=== PATIENT | male | born 1975 | race Caucasian/White ===

== ENCOUNTER 2018-07-15 08:54 | Inpatient (IN) ==
--- NOTE | 2018-06-28 16:05 | PAT Medication Instructions ---
Medication Instructions Date of Service June 28, 2018 Home Medications lisinopril 20 mg PO QAM omeprazole 20 mg PO DAILY PRN oxybutynin chloride 10 mg PO QPM DO NOT take the morning of surgery lisinopril 20 mg PO QAM Take morning of surgery With a small sip of water, OTHERWISE NOTHING TO EAT OR DRINK AFTER MIDNIGHT: omeprazole 20 mg PO DAILY PRN (if needed) Take evening before surgery omeprazole 20 mg PO DAILY PRN (if needed) oxybutynin chloride 10 mg PO QPM Other Notes If you have any questions please call us at [phone] or [phone] or [phone] or [phone]
--- NOTE | 2018-07-01 11:40 | Anesthesiology Consultation ---
Date of Service July 01, 2018 Assessment & Plan Chart Review Chart Review: Acceptable Risk for Surgery and Patient seen in Pre Admission Testing Teaching & Discussion Pre-Anesthesia Teaching/Discussion Notes: Instructed NPO after midnight before surgery,except medications with 15 cc of water. Medication instructions provided according to the PAT guidelines. History Surgery Operation Date: 07/15/18 12:25 Proposed Procedures p L4-S1 Decompression and Fusion - Dejan Segovia DO Height/Weight Height: 6 ft Weight: 88.7 kg Allergies Allergy/AdvReac Type Severity Reaction Status Date / Time Penicillins Allergy Unknown A CHILD Verified 06/25/18 14:58 Medications Home Medications Medication Instructions Recorded Confirmed Last Taken lisinopril 20 mg PO QAM 06/25/18 06/25/18 Unknown omeprazole 20 mg PO DAILY PRN 06/25/18 06/25/18 Unknown oxybutynin chloride 10 mg PO QPM 06/25/18 06/25/18 Unknown Past Medical History Medical History Chronic back pain LLE RADICULOPATHY/NEUROPATHY GERD (gastroesophageal reflux disease) CONTROLLED Hyperlipidemia "BORDERLINE" Hypertension Overactive bladder Past Surgical History Surgical History History of herniorrhaphy RIGHT INGUINAL Ulnar nerve compression LEFT DECOMPRESSION Past Anesthesia History No Hx of Anesthesia Complications and No Family Hx of Anesthesia Complications History of PONV No Motion Sickness Screening History of Motion Sickness: No Social History Smoking Status: Current every day smoker tobacco type: cigarettes Do You Dip or Chew Tobacco: Yes (OCCASIONAL- ADVISED NOT TO CHEW AM DOS) Smoking End Date: 1 PPD X 30 YEARS AGO Hx Alcohol Use: Yes Alcohol type: beer alcohol intake frequency: a few times a month Hx Substance Use: No substance use type: does not use Exercise / Class Metabolic Activity II 4-5 Yardwork/Stairs/Walk up hill Review of Systems URI symptoms improving. Patient denies chest pain, shortness of breath, dyspnea on exertion, wheezing, palpitations. Physical Exam Vital Signs VITALS BP 119/82 P 71 TEMP 97.7 SP02 96%RA RESP 20 PHYSICAL Full neck and c-spine range of motion. Full TMJ range of motion. TMD 3 finger breaths Mallampati Score 3 Dentition: intact Lungs: clear throughout to auscultation Cardiac: regular rate and rhythm, no murmurs noted Spine: normal Carotid arteries: negative bruit Extremities: no edema Trimmed pichardo. Testing Electrocardiogram Date: 01/03/18 Findings: + NSR @ (69) Chest X-Ray Date: 01/03/18 Findings: + NAD Echocardiogram Date: 01/20/16 EF 66%. No RWMA. No significant valvular disease. Stress Test Date: 01/20/16 Type: exercise (+ NUCLEAR) No exercise induced reversible myocardial ischemia noted. LVEF 60%. 10.3 METS. 100%MPHR. Laboratory Results 07/01/18 11:48 07/01/18 11:48 Blood Type O Positive 07/01/18 11:48 Antibody Screen NEGATIVE 07/01/18 11:48 PT 9.7 Seconds (9.0-12.0) 07/01/18 11:48 INR 1.0 (0.9-1.1) 07/01/18 11:48 APTT 25.5 Seconds (21.0-31.0) 07/01/18 11:48 Urine Color Yellow 07/01/18 11:48 Urine Appearance Clear (Clear) 07/01/18 11:48 Urine pH 6.5 (4.5-7.5) 07/01/18 11:48 Ur Specific [place] 1.008 (1.000-1.030) 07/01/18 11:48 Urine Protein Negative (Negative) 07/01/18 11:48 Urine Glucose (UA) Negative (Negative) 07/01/18 11:48 Urine Ketones Negative (Negative) 07/01/18 11:48 Urine Nitrite Negative (Negative) 07/01/18 11:48 Ur Leukocyte Esterase Trace (Negative) H 07/01/18 11:48 Urine WBC (Auto) 1-5 /hpf (0-5) 07/01/18 11:48 Urine RBC (Auto) 0-4 /hpf (0-4) 07/01/18 11:48 U Hyaline Cast (Auto) 0 /lpf (0-5) 07/01/18 11:48 U Epithel Cells (Auto) 0-5 /lpf (0-5) 07/01/18 11:48 Urine Bacteria (Auto) Negative (Negative) 07/01/18 11:48
[2018-07-01 12:17] LABS: Basophils # (auto) 0.06 K/uL (0-0.2); Basophils % (auto) 0.6 %; Eosinophils # (auto) 0.11 K/uL (0-0.5); Eosinophils % (auto) 1.1 %; Hematocrit (blood only) 46.2 % (42-52); Hemoglobin 16.2 g/dL (14.0-18.0); Immature Granulocytes # (auto) 0.03 K/uL (0.00-0.02); Immature Granulocytes % (auto) 0.3 %; Lymphocytes # (auto) 3.07 K/uL (1.2-3.4); Lymphocytes % (auto) 30.9 %; Mean Corpuscular Hgb Conc 35.1 g/dL (32-36); Mean Corpuscular Volume 90.1 fL (80-100); Mean Platelet Volume 11.5 fL (7.4-10.4); Neutrophils # (auto) 6.08 K/uL (1.4-6.5); Neutrophils % (auto) 61.1 %; Platelet Count 306 K/uL (130-400); RDW Coefficient of Variation 13.3 % (11.5-14.5); RDW Standard Deviation 43.7 fL (36.4-46.3); Red Blood Count 5.13 M/uL (4.7-6.1); White Blood Count 9.95 K/uL (4.8-10.8)
[2018-07-01 12:30] LABS: Partial Thromboplastin Time 25.5 Seconds (21.0-31.0); Prothrombin Time 9.7 Seconds (9.0-12.0)
[2018-07-01 13:03] LABS: Appearance Urine Clear (Clear); Bacteria Urine Automated Negative (Negative); Bilirubin Urine Negative (Negative); Blood Urine Negative (Negative); Cast Urine Automated 0 /lpf (0-5); Color Urine Yellow; Epithelial Cell Urine Auto 0-5 /lpf (0-5); Glucose Urine UA Negative (Negative); Ketones Urine Negative (Negative); Leukocyte Esterase Urine Trace (Negative); Nitrite Urine Negative (Negative); Protein Urine Negative (Negative); RBC Urine Automated 0-4 /hpf (0-4); Specific Gravity Urine 1.008 (1.000-1.030); Urobilinogen Urine Negative (Negative); pH Urine 6.5 (4.5-7.5)
[2018-07-01 14:05] LABS: BUN Creatinine Ratio 17.7 (10-20); Calcium 9.5 mg/dl (8.5-10.1); Creatinine Clr Calc Pharmacy 129.3 ml/min; Est GFR (African American) 125.9; Est GFR (Non-African American) 108.6; Potassium 4.1 mmol/L (3.5-5.1)
[~2018-07-15 08:54] MED LIST: ACETAMINOPHEN 500 MG TAB PO SCH; CLINDAMYCIN 600 MG/54 ML BAG IV SCH; CeleBREX 200 MG CAP PO SCH; GABAPENTIN 300 MG x 3 PO SCH; LR 15ML/HR IV SCH
[2018-07-15] MEDS ORDERED: fentaNYL citrate 100 MCG/2 ML VIAL ONE ×2 (08:59→10:39)
[2018-07-15] MEDS ORDERED: MIDAZOLAM HCL 1 MG/ML 2ML VIAL ONE (08:59)
[2018-07-15] MEDS ORDERED: HYDROmorphone INJ 2 MG/ML SYR/VIAL ONE (09:00)
--- NOTE | 2018-07-15 09:30 | History & Physical Bridge Note ---
Date of Service July 15, 2018 History & Physical Bridge Note I have examined the patient, reviewed the History & Physical and in the interval since the performance of the History & Physical I have noted the following changes of clinical significance: no changes noted
--- NOTE | 2018-07-15 09:31 | History & Physical Report ---
Date of Service July 15, 2018 Assessment & Plan (1) Neurogenic claudication due to lumbar spinal stenosis: L4-S1 decompression and fusion Present on Admission?: Yes History of Present Illness Chief Complaint: Chronic back and leg pain Primary Care Provider: Angela Silverman This is a 42-year-old male presents with chronic back and leg pain. After failing extensive course of nonoperative care is here for surgical intervention. Allergies Allergy/AdvReac Type Severity Reaction Status Date / Time Penicillins Allergy Unknown A CHILD Verified 06/25/18 14:58 Home Medications Home Medications Medication Instructions Recorded Confirmed Type lisinopril 20 mg PO QAM 06/25/18 06/25/18 History omeprazole 20 mg PO DAILY PRN 06/25/18 06/25/18 History oxybutynin chloride 10 mg PO QPM 06/25/18 06/25/18 History Past Med/Surg History Medical History Chronic back pain LLE RADICULOPATHY/NEUROPATHY GERD (gastroesophageal reflux disease) CONTROLLED Hyperlipidemia "BORDERLINE" Hypertension Overactive bladder Surgical History History of herniorrhaphy RIGHT INGUINAL Ulnar nerve compression LEFT DECOMPRESSION Social History Current Living Situation: Spouse and Family Other Information That Helps Us Care for You: No Feels Safe at Home: Yes Safety Concerns: Feels Safe At This Time Smoking Status: Current every day smoker Tobacco Type: cigarettes Do You Dip or Chew Tobacco: Yes (OCCASIONAL- ADVISED NOT TO CHEW AM DOS) Smoking End Date: 1 PPD X 30 YEARS AGO Hx Alcohol Use: Yes Alcohol type: beer Alcohol Intake Frequency: a few times a month Hx Substance Use: No Beliefs That Will Affect Care: None Preferred Language: Taiwanese Communication Ability: Effective Telephone Triage Nurse Required: No
[2018-07-15] MEDS ORDERED: ATROPINE SULFATE 0.1 MG/ML 10ML SYR IV PRN (09:48)
[2018-07-15] MEDS ORDERED: ONDANSETRON INJ 2 MG/ML 2 ML VIAL IV PRN ×2 (09:48→14:05)
[2018-07-15] MEDS ORDERED: LABETALOL HCL IV 5 MG/ML 20ML IV PRN (09:48)
[2018-07-15] MEDS ORDERED: BUPIVACAINE/EPINEPHRINE 0.5% MPF 1:200,000 30 ML VIAL ONE (09:54)
[2018-07-15] MEDS ORDERED: BACITRACIN INJ 50,000 UNIT VIAL ONE (09:55)
[2018-07-15] MEDS ORDERED: ROCURONIUM BROMIDE 10 MG/ML 5 ML VIAL ONE ×4 (10:38→11:45)
[2018-07-15] MEDS ORDERED: ONDANSETRON INJ 2 MG/ML 2 ML VIAL ONE (10:38)
[2018-07-15] MEDS ORDERED: DEXAMETHASONE SOD INJ 4 MG/ML VIAL ONE (10:38)
[2018-07-15] MEDS ORDERED: NEOSTIGMINE METHYLSULFATE 1 MG/ML 10ML VIAL ONE (10:38)
[2018-07-15] MEDS ORDERED: LIDOCAINE HCL 2% 2 ML VIAL/AMP(20MG/ML) INFIL ONE (10:38)
[2018-07-15] MEDS ORDERED: GLYCOPYRROLATE 0.2 MG/ML VIAL ONE (10:38)
[2018-07-15] MEDS ORDERED: PROPOFOL IV EMULSION 10 MG/ML 20 ML VIAL IV ONE (10:38)
[2018-07-15] MEDS ORDERED: FLOSEAL HEMOSTATIC MATRIX 10ML TOP ONE (12:00)
--- NOTE | 2018-07-15 12:20 | Operative Report ---
Post Operative Report Pre & Post Diagnosis Operation Date: 07/15/18 11:55 Pre-Op Diagnosis: Neurogenic Claudication due to Lumbar Spinal Stenosis Post-Op Diagnosis: Neurogenic Claudication due to Lumbar Spinal Stenosis Procedure Operation Date: 07/15/18 11:55 Actual Procedures #1 lumbar decompression medial vasectomies foraminotomies L4-5 L5-S1. #2 posterior spinal fusion L4-5 L5-S1. #3 placement posterior segmental instrumentation L4-5 L5-S1. #4 interbody fusion L4-5 L5-S1. #5 placement of titanium cage 12 x 26 mm L4-5 and 11 x 26 mm L5-S1 per #6 placement of local autograft in the posterior lateral gutters per #7 placement infuse collagen sponge bone mass graft in the posterior gutters and ostial amp in the interbody space. Surgeon Dejan Segovia DO Sales And Service Representative Savannah Carmichael Estimated Blood Loss 100 Findings Consistent with Post-Op Diagnosis Specimens None Description of Procedure Patient was met with preoperatively case discussed all questions addressed. After informed consent obtained patient was taken to the operative suite underwent intubation and placed in a prone position on the [place] table on top of the Leroy frame. All bony prominences were well-padded eyes inspected to ensure no external pressure placed upon the peer at this point the lumbar spine was prepped and draped in a normal sterile fashion. Sharp dissection with the assistance of Bovie cautery was performed down to and exposing the lamina drinks processes of L4-L5 and sacral ala bilaterally. From a caudal to cephalad fashion complete laminectomy of L5 and L4 was performed including bilateral medial facetectomies and foraminotomies addressing severe stenosis. Pedicle screws were then placed in L4-L5 and S1 levels bilaterally with assistance of fluoroscopy the process jose placed. Through a transforaminal approach on the left complete discectomy of L5-S1 was performed in plate coated to subcortical bleeding bone and a 11 x 26 mm titanium cage filled with osteo- amp bone graft tapped in position. Then proceeded L4-[address] of a transforaminal approach complete discectomy performed in place coated to subcortical bleeding bone and a 12 x 26 mm titanium cage filled with ostium bone graft tapped in position. Rods were then compressed locked into final position bilaterally. The transverse processes of L4-L5 and sacral ala bur to subcortical B bone. Infuse collagen sponge mass graft local autograft placed in the posterior gutters. 15 round OLMAN drain inserted. The incision was then closed with 1 Vicryl in the fascia 2-0 Vicryl substantially and 4-0 Monocryl for final skin closure. Steri-Strip sterile dressings placed. Patient will continue to PACU stable disc. Please note Savannah Carmichael present throughout the entire procedure involved in patient positioning complex portions of the surgery and final skin closure. I attest to the content of the Intraoperative Record and any orders documented therein. Any exceptions are noted below.
[2018-07-15] MEDS: HYDROmorphone INJ 1 MG/ML SYRINGE IV PRN ×8 (12:48→13:33)
--- NOTE | 2018-07-15 12:53 | Fluoroscopy Report ---
FL lumbar spine 2-3V CLINICAL HISTORY: L4-S1 DECOMP/FUSION COMPARISON STUDY: None FLUOROSCOPY TIME: 20 seconds. NUMBER OF FLUOROSCOPIC IMAGES: 2 FINDINGS: There are postsurgical changes of posterior spinal decompression, discectomy and interbody implants at the L4-5 and L5-S1 levels. There are posterior spinal cord screws and adjoining spinal ro ds at the L4, L5, and S1 levels IMPRESSION: Postsurgical changes of a spinal decompression and fusion at the L4 through S1 level Electronically signed by: Yahir Salazar M.D. 07/15/2018 12:51 PM
--- NOTE | 2018-07-15 13:43 | Anesthesiology Progress Note ---
Date of Service July 15, 2018 Anesthesia Post Procedure Vital Signs Vital Signs: Temp Pulse Pulse Resp BP BP Pulse Ox 07/15/18 13:29 36.3 C L 75 17 111/77 98 07/15/18 13:21 81 16 114/81 97 07/15/18 13:20 84 15 97 07/15/18 13:18 75 8 L 123/77 97 07/15/18 13:16 77 13 141/98 H 97 07/15/18 13:11 73 10 L 155/97 H 98 07/15/18 13:10 78 12 98 07/15/18 13:06 87 15 138/82 98 07/15/18 13:01 83 19 152/92 H 98 07/15/18 13:00 81 11 L 97 07/15/18 12:56 81 12 160/88 H 96 07/15/18 12:51 84 15 160/117 H 97 07/15/18 12:50 87 18 98 07/15/18 12:46 85 15 171/100 H 98 07/15/18 12:40 88 15 100 07/15/18 12:36 94 H 21 145/97 H 99 07/15/18 12:35 85 13 148/98 H 99 07/15/18 12:34 36.8 C 88 95 H 11 L 148/98 H 98 07/15/18 09:40 36.9 C 75 18 130/89 97 Pain Intensity Left Leg: Pain Intensity: 2 Back: Pain Intensity: 5 Notes Mental Status: alert / awake / arousable Patient Amnestic to Procedure: Yes Nausea / Vomiting: adequately controlled Pain: adequately controlled Airway Patency, RR, SpO2: stable & adequate BP & HR: stable & adequate Hydration State: stable & adequate Anesthetic Complications: no major complications apparent
[2018-07-15] MEDS ORDERED: PROMETHAZINE HCL 12.5 MG in SODIUM CHLORIDE 0.9% 50 ML IV PRN (14:05)
[2018-07-15] MEDS ORDERED: ONDANSETRON 4 MG TAB PO PRN (14:05)
[2018-07-15] MEDS ORDERED: HYDROmorphone INJ 0.5 MG/0.5 ML SYR IV PRN (14:05)
[2018-07-15] MEDS ORDERED: ACETAMINOPHEN 1,000 MG/100 ML VIAL IV PRN (14:05)
[2018-07-15] MEDS ORDERED: SOD PHOSPHATE/SOD BIPHOSPHATE ENEMA 132 ML BTL PR PRN (14:05)
[2018-07-15] MEDS ORDERED: MAGNESIUM HYDROXIDE SUSP 30 ML UDC PO PRN (14:05)
[2018-07-15] MEDS ORDERED: DO NOT ADMINISTER FLU VACCINE PRN (14:05)
[2018-07-15] MEDS ORDERED: METOCLOPRAMIDE HCL INJ 5 MG/ML 2 ML VIAL IV PRN (14:05)
[2018-07-15] MEDS ORDERED: DO NOT ADMINISTER PNEUMOCOCCAL VACCINE PRN (14:05)
[2018-07-15] MEDS ORDERED: LORazepam 0.5 MG/1 ML VIAL IV PRN (14:05)
[2018-07-15] MEDS ORDERED: BISACODYL 10 MG SUPP PR PRN (14:05)
[2018-07-15] MEDS ORDERED: ACETAMINOPHEN 500 MG TAB PO PRN (14:05)
[2018-07-15] MEDS ORDERED: ALUMINUM/MAGNESIUM SUSP 30 ML UDC PO PRN (14:05)
[2018-07-15] MEDS ORDERED: FAMOTIDINE 20 MG TAB PO PRN (14:05)
[2018-07-15] MEDS: LACTATED RINGER'S 1,000 ML IV SCH ×2 (14:27→21:53)
[2018-07-15] MEDS: KETOROLAC 30 MG/ML VIAL IV SCH ×2 (15:25→21:55)
[2018-07-15] MEDS: CLINDAMYCIN 600 MG in DEXTROSE 5% 50 ML IV SCH (17:34)
[2018-07-15] MEDS: OXYCODONE HCL IR 5 MG TAB (IMMEDIATE RELEASE) PO PRN ×2 (17:45→21:53)
[2018-07-15] MEDS: NICOTINE 21 MG/24 HR TDSY TD SCH (19:28)
[2018-07-15] MEDS: DOCUSATE SODIUM/SENNA 50/8.6MG TAB PO SCH (20:22)
[2018-07-15] MEDS: OXYBUTYNIN CHLORIDE XL 5 MG TABCR PO SCH (20:23)
[2018-07-16] MEDS: CLINDAMYCIN 600 MG in DEXTROSE 5% 50 ML IV SCH (01:12)
[2018-07-16] MEDS: TRAMADOL HCL 50 MG TABLET PO PRN ×2 (01:15→17:19)
[2018-07-16] MEDS: KETOROLAC 30 MG/ML VIAL IV SCH ×2 (04:29→09:18)
[2018-07-16] MEDS: POLYETHYLENE (MIRALAX) 17 GM PACK PO SCH ×4 (04:29→23:36)
[2018-07-16 06:19] LABS: Basophils # (auto) 0.02 K/uL (0-0.2); Basophils % (auto) 0.1 %; Eosinophils # (auto) 0.01 K/uL (0-0.5); Eosinophils % (auto) 0.1 %; Hematocrit (blood only) 38.1 % (42-52); Hemoglobin 13.2 g/dL (14.0-18.0); Immature Granulocytes # (auto) 0.07 K/uL (0.00-0.02); Immature Granulocytes % (auto) 0.4 %; Lymphocytes # (auto) 2.42 K/uL (1.2-3.4); Lymphocytes % (auto) 13.4 %; Mean Corpuscular Hgb Conc 34.6 g/dL (32-36); Mean Corpuscular Volume 89.2 fL (80-100); Mean Platelet Volume 11.6 fL (7.4-10.4); Monocytes # (auto) 1.81 K/uL (0.11-0.59); Platelet Count 263 K/uL (130-400); RDW Coefficient of Variation 13.2 % (11.5-14.5); RDW Standard Deviation 42.7 fL (36.4-46.3); Red Blood Count 4.27 M/uL (4.7-6.1); White Blood Count 18.03 K/uL (4.8-10.8)
[2018-07-16 06:49] LABS: BUN Creatinine Ratio 18.4 (10-20); Calcium 8.3 mg/dl (8.5-10.1); Creatinine Clr Calc Pharmacy 152.2 ml/min; Est GFR (African American) 134.6; Est GFR (Non-African American) 116.2
[2018-07-16] MEDS: LACTATED RINGER'S 1,000 ML IV SCH (07:05)
--- NOTE | 2018-07-16 07:34 | Anesthesiology Progress Note ---
Date of Service July 16, 2018 Anesthesia Post Procedure Vital Signs Vital Signs: Temp Pulse Pulse Resp BP BP BP 07/16/18 07:00 36.5 C 68 16 120/73 07/16/18 04:16 36.8 C 86 15 134/72 07/15/18 23:10 36.9 C 82 16 126/75 07/15/18 17:01 36.7 C 68 16 136/88 07/15/18 15:57 36.5 C 69 16 129/82 07/15/18 14:56 72 17 124/86 07/15/18 14:25 36.4 C L 69 20 120/84 07/15/18 14:00 36.6 C 73 20 111/73 07/15/18 13:50 67 16 07/15/18 13:46 70 14 104/83 07/15/18 13:42 71 16 07/15/18 13:41 78 12 116/86 07/15/18 13:40 76 14 07/15/18 13:36 75 13 114/79 07/15/18 13:31 73 19 111/77 07/15/18 13:30 77 17 07/15/18 13:29 36.3 C L 75 17 111/77 07/15/18 13:25 74 16 110/80 07/15/18 13:22 80 15 07/15/18 13:21 81 16 114/81 07/15/18 13:20 84 15 07/15/18 13:18 75 8 L 123/77 07/15/18 13:16 77 13 141/98 H 07/15/18 13:11 73 10 L 155/97 H 07/15/18 13:10 78 12 07/15/18 13:06 87 15 138/82 07/15/18 13:01 83 19 152/92 H 07/15/18 13:00 81 11 L 07/15/18 12:56 81 12 160/88 H 07/15/18 12:51 84 15 160/117 H 07/15/18 12:50 87 18 07/15/18 12:46 85 15 171/100 H 07/15/18 12:40 88 15 07/15/18 12:36 94 H 21 145/97 H 07/15/18 12:35 85 13 148/98 H 07/15/18 12:34 36.8 C 88 95 H 11 L 148/98 H 07/15/18 09:40 36.9 C 75 18 130/89 Pulse Ox 07/16/18 07:00 99 07/16/18 04:16 99 07/15/18 23:10 98 07/15/18 17:01 97 07/15/18 15:57 98 07/15/18 14:56 100 07/15/18 14:25 98 07/15/18 14:00 99 07/15/18 13:50 96 07/15/18 13:46 97 07/15/18 13:42 96 07/15/18 13:41 97 07/15/18 13:40 97 07/15/18 13:36 97 07/15/18 13:31 96 07/15/18 13:30 96 07/15/18 13:29 98 07/15/18 13:25 94 07/15/18 13:22 97 07/15/18 13:21 97 07/15/18 13:20 97 07/15/18 13:18 97 07/15/18 13:16 97 07/15/18 13:11 98 07/15/18 13:10 98 07/15/18 13:06 98 07/15/18 13:01 98 07/15/18 13:00 97 07/15/18 12:56 96 07/15/18 12:51 97 07/15/18 12:50 98 07/15/18 12:46 98 07/15/18 12:40 100 07/15/18 12:36 99 07/15/18 12:35 99 07/15/18 12:34 98 07/15/18 09:40 97 Pain Intensity Left Leg: Pain Intensity: 2 Back: Pain Intensity: 5 Notes Mental Status: alert / awake / arousable and participated in evaluation Patient Amnestic to Procedure: Yes Nausea / Vomiting: adequately controlled Pain: adequately controlled Airway Patency, RR, SpO2: stable & adequate BP & HR: stable & adequate Hydration State: stable & adequate Anesthetic Complications: no major complications apparent and Pt Satisfied with anesthetic care
[2018-07-16] MEDS: LISINOPRIL 20 MG TAB PO SCH (07:50)
[2018-07-16] MEDS: PANTOprazole 40 MG TAB PO PRN (07:50)
[2018-07-16] MEDS: OXYCODONE HCL IR 5 MG TAB (IMMEDIATE RELEASE) PO PRN ×4 (09:18→23:14)
--- NOTE | 2018-07-16 11:12 | Orthopedic Progress Note ---
Date of Service July 16, 2018 Assessment & Plan (1) Neurogenic claudication due to lumbar spinal stenosis: We will continue physical therapy today monitor his OLMAN output anticipate discharge home in the next day or so. Present on Admission?: Yes Subjective Back pain is controlled leg symptoms markedly improved. Physical Exam 2 Vital Signs (Past 24 Hours): Last Vital Signs Temp 36.5 C 07/16/18 07:00 Pulse 68 07/16/18 07:00 Resp 16 07/16/18 07:00 BP 120/73 07/16/18 07:00 Pulse Ox 99 07/16/18 07:00 Physical Exam: On exam he is comfortable has good strength testing.
[2018-07-16] MEDS: OXYBUTYNIN CHLORIDE XL 5 MG TABCR PO SCH (20:05)
[2018-07-16] MEDS: DOCUSATE SODIUM/SENNA 50/8.6MG TAB PO SCH (20:05)
[2018-07-16] MEDS: LORazepam 0.5 MG TAB PO PRN (22:28)
[2018-07-17] MEDS: TRAMADOL HCL 50 MG TABLET PO PRN ×4 (01:01→16:28)
[2018-07-17] MEDS: OXYCODONE HCL IR 5 MG TAB (IMMEDIATE RELEASE) PO PRN ×3 (03:36→14:51)
[2018-07-17] MEDS: POLYETHYLENE (MIRALAX) 17 GM PACK PO SCH ×2 (05:31→12:20)
[2018-07-17] MEDS: LISINOPRIL 20 MG TAB PO SCH (07:15)
[2018-07-17] MEDS: NICOTINE 21 MG/24 HR TDSY TD SCH (07:16)
[2018-07-17] MEDS: LORazepam 0.5 MG TAB PO PRN (07:57)
[2018-07-17] MEDS: PANTOprazole 40 MG TAB PO PRN (08:34)
--- NOTE | 2018-07-17 10:49 | Orthopedic Progress Note ---
Date of Service July 17, 2018 Assessment & Plan (1) Neurogenic claudication due to lumbar spinal stenosis: This time we will maintain the OLMAN drain another 24 hours. We will continue physical therapy today. Anticipate discharge home tomorrow. Present on Admission?: Yes Subjective Back pain still quite limiting leg pain markedly improved. Physical Exam Vital Signs (Past 24 Hours): Last Vital Signs Temp 37 C 07/17/18 07:03 Pulse 79 07/17/18 07:03 Resp 16 07/17/18 07:03 BP 115/80 07/17/18 07:03 Pulse Ox 98 07/17/18 07:03 Physical Exam: On physical exam he has good strength testing. Is lying in bed.
[2018-07-17] MEDS: KETOROLAC 30 MG/ML VIAL IV PRN ×2 (12:19→18:43)
[2018-07-17] MEDS: DOCUSATE SODIUM/SENNA 50/8.6MG TAB PO SCH (20:48)
[2018-07-17] MEDS: OXYBUTYNIN CHLORIDE XL 5 MG TABCR PO SCH (20:49)
[2018-07-18] MEDS: OXYCODONE HCL IR 5 MG TAB (IMMEDIATE RELEASE) PO PRN ×3 (00:05→11:11)
[2018-07-18] MEDS: LORazepam 0.5 MG TAB PO PRN (05:23)
[2018-07-18] MEDS: KETOROLAC 30 MG/ML VIAL IV PRN (07:17)
[2018-07-18] MEDS: LISINOPRIL 20 MG TAB PO SCH (07:17)
[2018-07-18] MEDS: NICOTINE 21 MG/24 HR TDSY TD SCH (07:17)
[2018-07-18] MEDS: PANTOprazole 40 MG TAB PO PRN (08:36)
[2018-07-18] MEDS: TRAMADOL HCL 50 MG TABLET PO PRN (08:39)
--- NOTE | 2018-07-18 14:56 | Discharge Summary ---
Date of Service July 18, 2018 Admission HPI Per Admitting Provider This is a 42-year-old male presents with chronic back and leg pain. After failing extensive course of nonoperative care is here for surgical intervention. Principal Diagnosis Lumbar spinal stenosis with radiculopathy Discharge Data Allergies Allergy/AdvReac Type Severity Reaction Status Date / Time Penicillins Allergy Intermediate A CHILD Verified 07/15/18 10:04 Consultations 07/15/18 14:05 Consult Case Management - Discharge Planning Routine Procedures Performed Operation Date: 07/15/18 11:55 Actual Procedures p L4-S1 Decompression and Fusion(Not Applicable) - Dejan Segovia DO Ordered Studies 07/15/18 11:55 FL fluoroscopy <1hr Routine FL lumbar spine 2-3V Routine Hospital Course (1) Neurogenic claudication due to lumbar spinal stenosis: Patient underwent lumbar decompression fusion tolerated as well as taken the orthopedic floor postoperative. Postop day 1 is opening bleeding nicely. Left leg symptoms markedly improved. He progressed to postop day #2. Back pain steadily becoming more controlled. OLMAN drain decreasing appropriately. Subsequently was discharged home on postop day #3. Discharge orders and instructions can be found in the chart for further review. Total Time Total Time Spent Total Time Spent (In Minutes): Not applicable Discharge Plan Discharge Items Patient Disposition: Home - Self-Care Reason For Visit: Spinal Stenosis, Lumbosacral Region Discharge Diagnosis: Lumbar spinal stenosis with radiculopathy Discharge Goals: Decrease discomfort Activity: Per 'Additional Instructions' section Non-emergency contact: Primary Care Provider Call non-emergency contact if: you have any medication questions Follow-up/Referrals: Angela Silverman PA-C [Primary Care Provider] - Diet: Regular Addtl Provider Instructions: ACTIVITY RECOMMENDATIONS: SELF CARE INSTRUCTIONS AFTER THORACIC/LUMBAR FUSIONS 1. You may walk to your tolerance. It is good exercise for your legs and back. Expect some back and intermittent leg aches and pains. 2. You may perform "counter-top" level activities (make a sandwich, emily with a project, etc.). 3. No bending or lifting of more than 10 pounds or back twisting of any nature (roll like a log when turning in bed). 4. You may ride in a car for 20-30 minutes at a time. No driving until after your first visit with your doctor. 5. Frequent changes of position and restricting sitting to 30 minutes at a time will help limit the amount of back spasms and stiffness you may experience. 6. You may discontinue the use of ambulatory aids (cane, crutches, etc.) once your strength and confidence allow. 7. You may vanstone machine operator the shower and let water strike your incision when you arrive home at least once daily. Do not take a tub bath, sit in a hot tub or go into a swimming pool until after your first recheck in the office. SPECIAL CARE INSTRUCTIONS: VERY IMPORTANT TO READ AND REVIEW A. Your surgical incision has been closed with a cosmetic suture under the skin that will dissolve in about 6 weeks. In 14 days, you can use a pair of clean scissors and cut the suture that is left outside of the skin at the ends of your incision. 1. The small skin tapes can be removed 7 days after surgery if they have not fallen off by that point. 2. You may keep the wound open to air as much as possible to promote healing after post-op day number 5 unless told otherwise by your doctor. 3. If you think the wound looks like it is becoming infected (redness or worsening drainage) and/or you are experiencing fever, chill or worsening back pain and muscle spasms, contact the office so that we may evaluate you as soon as possible. B. Complications are uncommon, but please contact us if you have any signs or symptoms of: 1. wound infection (fever higher than 102.5 degrees F, redness, separation of wound, drainage, or increasing pain from the incision) 2. blood clots in legs (pain, swelling, redness and warmth in legs) 3. urinary tract infection (fever higher than 102.5 degrees F, burning upon urination or increased frequency of urination) 4. nerve problems (inability to walk on your toes or heels, numbness, loss of bowel or bladder control) 5. any other symptoms that concern you C. Please call the office at if you have any concerns or questions about your operation or recovery. D. No smoking! Smoking drastically decreases the chance of a solid fusion. E. Do not take any anti-inflammatory medications (Indocin, Advil, Motrin, Aspirin, Naprosyn, etc.) as these may inhibit the chance of a solid fusion. Tylenol is okay to take for pain. MANAGING PAIN AFTER SPINAL SURGERY 1. Narcotic medication is intended for short-term use and will be provided for surgical pain. Surgical pain usually lasts for a period of 4-6 weeks. Narcotic medication includes Percocet, Vicodin, Darvocet, Tylenol #3 or Lortab. 2. Longer-term pain is more appropriately treated with non-narcotic medication such as Tylenol ES. 3. Muscle spasm is not appropriately treated with narcotics. Muscle relaxers such as Soma, Flexeril or Skelaxin can be used along with Tylenol ES. 4. Remember that we all live with some "aches and pains". This is not unusual or uncommon after an injury or as we get older. a. Back pain is expected and may include muscle spasms for 4 to 6 weeks after surgery. The pain should gradually improve. If the pain worsens for no apparent reason, please contact the office. b. Intermittent leg pain may also be experienced and should not be concerned about unless it worsens for no apparent reason. If so, please contact the office. 5. We will provide appropriate medication within the normal guidelines of their prescribed use. We will also be very cautious and aware of potential abuse and extended duration of patients' medication needs. a. Pain medications are for your comfort and to assist with sleep and rest so that the tissue can heal. They are not provided in order to return to normal activity and should not be used through the day. To do so or worsening pain at night can result from ongoing tissue damage and development of tolerance to the prescribed medicine. 6. Please allow 2-3 days to process refills. Prescriptions will not be mailed but must be picked up at the office. FOLLOW UP VISIT: Keep your scheduled follow-up appointment. Any questions, please call the office at . Prescriptions: New tramadol 50 mg Tablet 50 mg PO Q4H PRN (Reason: Pain, Moderate) Qty: 30 RF: 0 oxycodone 5 mg Tablet 5 mg PO Q4H PRN (Reason: Pain, Severe) Qty: 30 RF: 0 Continued oxybutynin chloride 10 mg Tablet Extended Release 24hr 10 mg PO QPM RF: 0 lisinopril 20 mg Tablet 20 mg PO QAM RF: 0 omeprazole 20 mg Tablet,Delayed Release (Dr/Ec) 20 mg PO DAILY PRN (Reason: Acid Reflux) RF: 0 Stand-Alone Forms: [facility], [facility], [facility] Discharge Orders: Discharge Order (Routine); Ordered 07/18/18 Ordered By: Dejan Segovia Admission Data Admit Date/Time: 07/15/18 12:24 Attending Provider: Dejan Segovia Admit Provider: Dejan Segovia Primary Care Provider: Angela Silverman Service: Surgical Services Other Interventions: Discharge Summary Assessment (RN) Last Done: 07/18/18 11:25 DC Date/Time DO NOT enter until pt leaves facility: 07/18/18 11:53
== END 2018-07-18 11:53 | disposition home or self-care (01) | DRG 455 ==
LOC: ASU 08:54 → 3E 12:24